=== PATIENT | female | born 1970 | race Two or more races ===

== ENCOUNTER 2024-12-26 16:31 | Emergency (ER) | payer MEDICAID, SELFPAY ==
[2024-12-26 16:32] VITALS: BMI 34.6
[2024-12-26 17:03] VITALS: BP 121/80; PULSE 70; RESP 18; TEMP 37.1; O2SAT 99
--- NOTE | 2024-12-26 17:30 | XR_ITS ---
Examination: CT abdomen and pelvis without contrast. Coronal 3-D reconstructions. Sagittal 2-D reconstructions. Date and time of exam:December 26, 2024 1813 hours INDICATIONS: Back pain and flank pain and burning sensation with urination beginning one week ago CTDI: vol (mGy): 12.1 DLP: (mGycm): 684 Technique: Axial images of the abdomen have been obtained, 3 mm slice thickness Intravenous contrast material has not been administered. Low dose protocols were performed. One or more of the following dose reduction techniques were used; automated exposure control, adjustment of the mA and/or KV according to patient size, use of iterative reconstruction technique. Findings: No focal liver or splenic lesions Cholelithiasis No pancreatic or adrenal mass No renal or ureteral calculi, no hydronephrosis Aorta normal size 10 mm fat-containing umbilical hernia No pericecal inflammatory change No bowel obstruction No diverticulitis Contracted urinary bladder Absent uterus No pelvic mass Advanced degenerative disc disease L4-L5 L5-S1 7 mm central left paracentral disc displacing right and left S1 nerve roots L4-L5 5 mm central lumbar disc bulge IMPRESSION: No renal or ureteral calculi, no hydronephrosis No CT findings of appendicitis bowel obstruction or diverticulitis Advanced degenerative disc disease L4-L5 L5-S1 partially extruded 7 mm central left paracentral disc displacing right and left S1 nerve roots L4-L5 5 mm central lumbar disc bulge
--- NOTE | 2024-12-26 17:30 | PD.EDRME ---
Rapid Medical Screening Exam RME Arrival date/time: 12/26/24 16:31 54-year-old female presents emergency department for complaint of back pain and flank pain Chief Complaint: Urogenital-Female Time Seen by Provider: 12/26/24 17:00 Vital signs: Vital Signs Temperature 98.7 F 12/26/24 17:03 Pulse Rate 70 12/26/24 17:03 Respiratory Rate 18 12/26/24 17:03 Blood Pressure 121/80 12/26/24 17:03 Pulse Oximetry (%) 99 12/26/24 17:03 Oxygen Delivery Method Room Air 12/26/24 17:03
[2024-12-26 17:57] LABS: Basophils % (Auto) 1 % (0-2.5); Eosinophils # (Auto) 0.1 Thou/mm3 (0.0-0.5); Eosinophils % (Auto) 1 % (0-10); Hematocrit 36.5 % (36.0-46.0); Hemoglobin 12.9 g/dL (12.0-16.0); Immature Granulocytes % (Auto) 0 % (0-0); Immature Granulocytes Auto 0.03 Thou/mm3 (0.00-0.00); Lymphocytes # (Auto) 2.1 Thou/mm3 (1.0-4.8); Lymphocytes % (Auto) 26 % (10-50); Mean Corpuscular HGB Conc 35.3 g/dl (31.0-37.0); Mean Corpuscular Hemoglobin 29.8 pg (25.0-35.0); Mean Corpuscular Volume 84 fL (80-100); Monocytes # (Auto) 0.8 Thou/mm3 (0.0-0.8); Monocytes % (Auto) 9 % (0-12); Neutrophils % (Auto) 62 % (37-80); Nucleated Red Blood Cell % 0 /100 WBC (0); Platelet Count 275 Thou/mm3 (140-440); RDW Standard Deviation 39.7 fL (36.4-46.3); Red Blood Count 4.33 Miln/mm3 (4.00-5.20)
[2024-12-26 18:18] LABS: Alanine Aminotransferase 29 U/L (10-49); Albumin, Serum 4.8 gm/dL (3.5-5.0); Albumin/Globulin Ratio 1.7 (1.2-2.2); Alkaline Phosphatase 89 U/L (46-116); Anion Gap 9 (7-16); Aspartate Amino Transferase 29 U/L (0-34); BUN/Creatinine Ratio 14 Ratio (12-20); Bilirubin,Total 0.5 mg/dL (0.3-1.2); Blood Urea Nitrogen 13 mg/dL (9-23); Calcium 9.7 mg/dL (8.3-10.6); Calcium (Corrected) 9.7 mg/dL (8.5-10.1); Carbon Dioxide 25.3 mMol/L (20.0-31.0); Chloride 105 mMol/L (98-107); Creatinine (Component) 0.9 mg/dL (0.6-1.3); Estimated Creatinine Clearance 81.4 mL/min (>60); Globulin 2.9 gm/dL (2.3-3.5); Glucose 96 mg/dL (74-106); Lipase 35 U/L (12-53); Osmolality,Calculated 277 (275-295); Potassium 3.7 mMol/L (3.4-5.1); Sodium 139 mMol/L (136-145); Total Protein 7.7 gm/dL (5.7-8.2); eGFR > 60 See Note
--- NOTE | 2024-12-26 18:34 | EDNOTE_ITS ---
ED Abdominal Pain RME/HPI General Chief Complaint: Urogenital-Female Stated complaint: LEFT FLANK PAIN AND BURNING WITH URINATION Time seen by provider: 12/26/24 17:00 Arrival date/time: This is a case of 54 year old female who came in with left flank pain radiating to left side of the abdomen no nausea no vomiting denies numbness denies weakness nor tingling sensation denies incontinence to urine or stool Source: patient Limitations: no limitations RME / HPI RME / HPI narrative: 12/26/24 16:31 54-year-old female presents emergency department for complaint of back pain and flank pain Related Data Home Medications ?Medication ?Instructions ?Recorded ?Confirmed chlordiazepoxide HCl 10 mg capsule 10 mg PO HS PRN Anx iety 11/22/20 11/26/20 omeprazole 10 mg capsule,delayed 10 mg PO QDAY 1 11/26/20 release Previous Rx's ?Medication ?Instructions ?Recorded cyclobenzaprine 10 mg tablet 10 mg PO TID PRN muscle s pasm #20 12/26/24 tabs ibuprofen 800 mg tablet 800 mg PO Q8H PRN pain #20 t abs 12/26/24 nitrofurantoin 100 mg PO Q12H 10 days #20 c aps 12/26/24 monohydrate/macrocrystals 100 mg capsule (Macrobid) Allergies Allergy/AdvReac Type Severity Reaction Status Date / Time No Known Allergies Allergy Verified 12/26/24 16:32 Review of Systems Review of Systems Systems Reviewed: All systems reviewed, normal except as documented Constitutional Constitutional: Reports system reviewed and no additional complaints, except as documented, Reports as per HPI, Denies chills and Denies fever(s) Cardiovascular Cardiovascular: Reports system reviewed and no additional complaints, except as documented, Reports as per HPI, Denies chest pain and Denies dyspnea Respiratory Respiratory: Reports system reviewed and no additional complaints, except as documented, Reports as per HPI, Denies chest congestion, Denies cough and Denies dyspnea Gastrointestinal Gastrointestinal: Reports system reviewed and no additional complaints, except as documented, Reports abdominal pain, Reports nausea and Denies vomiting Genitourinary Genitourinary: Reports system reviewed and no additional complaints, except as documented, Reports as per HPI, Denies abnormal vaginal bleeding, Reports dysuria and Denies hematuria Musculoskeletal Musculoskeletal: Reports system reviewed and no additional complaints, except as documented and Reports as per HPI Neurologic Neurologic: Reports system reviewed and no additional complaints, except as documented and Reports as per HPI ED Exam General Limitations: Present no limitations General appearance: Present alert and in no apparent distress; Absent appears intoxicated or anxious Head Head exam: Present atraumatic, normocephalic and normal inspection Eye Eye exam: Present normal appearance, PERRL and EOMI ENT ENT exam: Present normal exam, normal oropharynx and mucous membranes moist Neck Neck exam: Present normal inspection, full ROM and trachea midline; Absent te nderness, meningismus or lymphadenopathy Expanded Neck Exam Neck exam focused ED: Absent midline tenderness, paraspinal tenderness, tenderness (other), tracheal deviation, anterior neck swelling or thyroid enlargement Chest Chest inspection: Present normal inspection and symmetric chest wall rise Respiratory Respiratory exam: Present normal lung sounds bilaterally Cardiovascular Cardiovascular exam: Present regular rate, normal rhythm and normal heart sounds Abdominal Exam Abdominal exam: Present soft, tenderness, normal bowel sounds and other (+ CVA tenderness left); Absent distention, guarding, rebound, rigidity, diminished bowel sounds, hyperactive bowel sounds, hypoactive bowel sounds, organomegaly, obturator sign, Callaway's sign, Rovsing's sign, tenderness at McBurney's Point or ascites Abdominal tenderness: Present LLQ Extremities Exam Extremities exam: Present normal inspection and full ROM Back Exam Back exam: Present normal inspection, full ROM and other (no tendernedd on the lumbar and sacral area no paraspinal tenderness motor 5/5 all extremities reflex +2 sensory +2 all extremities capillary refill less than 2 seconds no crepitation); Absent tenderness, CVA tenderness (R), CVA tenderness (L), muscle spasm, paraspinal tenderness, vertebral tenderness, straight leg raise (R) or straight leg raise (L) Neurological Exam Neurological exam: Present alert, oriented X3, CN II-XII intact, normal gait, motor sensory deficit and reflexes normal Psychiatric Psychiatric exam: Present normal affect and normal mood Skin Skin exam: Present warm, dry, intact and normal color Course Quality Measures none Orders Category Date Time Status CT abdomen pelvis wo con Stat Exams 12/26/24 17:30 Completed CBC Stat Lab 12/26/24 17:35 Completed Comprehensive Metabolic Panel Stat Lab 12/26/24 17:35 Completed Lipase Stat Lab 12/26/24 17:35 Completed UA, C/S IF [Urinalysis, C/S if Indicated] Stat Lab 12/26/24 18:43 Completed Dexamethasone Inj [Decadron Inj] Med 12/26/24 19:16 Discontinued 10 mg IM X1 ONE Ketorolac Inj [Toradol Inj] Med 12/26/24 19:16 Discontinued 60 mg IM X1 ONE Vital Signs Vital signs: Vital Signs Temperature 98.7 F 12/26/24 17:03 Pulse Rate 70 12/26/24 17:03 Respiratory Rate 18 12/26/24 17:03 Blood Pressure 121/80 12/26/24 17:03 Pulse Oximetry (%) 99 12/26/24 17:03 Oxygen Delivery Method Room Air 12/26/24 17:03 Oxygen saturation 98% room air WNL Abdominal Pain MDM MDM Narrative MDM Narrative:: This is a case of 54 year old female who came in with left flank pain radiating to left side of the abdomen no nausea no vomiting denies numbness denies weakness nor tingling sensation denies incontinence to urine Physicial exam showed normal vital signs patient is not tacycardic not tacypneic blood pressure stable afebrile not hypoxic physical examination patient is awake alert oriented not in distress nontoxic looking abdominal exam is benign nonsurgical no guarding no rebound no rigidity mild tenderness in the left lower quadrant negative psoas negative obturator negative Rovsing's negative McBurney's negative Callaway sign no CVA tenderness no bladder tenderness back exam noted no tenderness on the lumbar and sacral area no crepitation no redness no paraspinal tenderness no para vertebral tenderness no CVA tenderness steady gait motor 5/5 in all extremities reflexes +2 sensory +2 capillary refill less than 2 seconds on my exam there is no s/sxof cauda equina no signs or symptoms of sepsis no signs and symptoms of dehydration test showed blood test showed no leukocytosis no anemia kidney and liver function is normal no electrolyte imbalance urinalysis showing positive WBC suggestive of urinary tract infection CT scan showed DDD l4-l5 with L5 -S1 partially extruded cental left paracentral displaing the right left s1 nerve roots and lumbar bulging disc I discuss with the patinet to Dr May Can she agreed since patient has no neurological sx and normal exam no s/sx of cauda equinia patinet is not indicated to be admitted or trasfer i discuss the discharge instruction to the patient vis austrian interpreted the important to see neurosurgeon was discuss which patinet will ffup with pcp she was also given referral to dr carlos woodruff to see tomorrow for possible mri she was also advsied if there is numbness weakness tingling sensation incontince to urine or stool she need to go to er or call 911 she was given toradol for pain and dexamethsone and prescribed with motrin and muscle relaxant she was also given macrobid for UTI patient was disharged with comforatble conditionwith stable condition and pain fee. Walking stable Patient verbalized no further complain with the proposed management plan including the need to follow up with his/her primary care physician and and any specialist fif applicable. Discussed patient for any urgent condition or worsening sx He she needed to go to Emergency room of call 911 Patient is acknowledge the responsibility to follow up as instructed and to monitor his/her symptoms For any persistnce of the symtoms for more than 3-5 days retrun precaution advised Discussed the result of thetest and was given printed dsicahrge instruction Patient data External records reviewed:: [facility] previous records Clinical information provided by:: patient Social determinants that could affect healthcare access:: none Patient has the following chronic illnesses:: none How is presenting disease/condition affected by chronic disease/condition?: no chronic disease Evaluation data The following diagnostics were reviewed and interpreted by me:: lab results and radiology exam(s) Lab and/or radiology exams considered but not ordered:: reviwed Interpretation Summary: normal Medications / Prescriptions Medications or Prescriptions considered but not ordered:: given Medication administrations:: Medication Administration History Discontinued Medications Dexamethasone Sodium Phosphate (Dexamethasone Sod Phos Inj 10 Mg/Ml Vial) 10 mg IM X1 ONE Stop: 12/26/24 19:17 Ketorolac Tromethamine (Ketorolac Inj 60 Mg/2 Ml Vial) 60 mg IM X1 ONE Stop: 12/26/24 19:17 given Consultations Consultation(s) initiated? (list below): No Diagnosis Differential diagnosis abdominal pain: abdominal pain, calculus of kidney and diverticulitis Most likely diagnosis given after review of the tests above:: ddd lumbar Admission Indicated Admission indicated?: indicated Explain why admission is indicated or not indicated:: not indicated Admission Request Was there a request for admission?: No Admission Attestation Admission request attestation: not indicated Disposition Plan Disposition Plan: Discharge Discharge Attestation Discharge Attestation: The patient and all family members were given an opportunity to ask questions and understood the discharge instructions. Discharge instructions specifically effects, indications for sooner follow up or return to the emergency department, and the expected course of current diagnosis. Patient condition: Stable Discharge Plan Plan Patient Disposition: HOME (Self Care) Patient condition on transfer: Stable Prescriptions/Referrals Prescriptions/Med Rec: New ibuprofen 800 mg tablet 800 mg PO Q8H PRN (Reason: pain) Qty: 20 0RF cyclobenzaprine 10 mg tablet 10 mg PO TID PRN (Reason: muscle spasm) Qty: 20 0RF nitrofurantoin monohyd/m-cryst [Macrobid] 100 mg capsule 100 mg PO Q12H 10 Days Qty: 20 0RF Rx Instructions: must administer with a meal/food No Action omeprazole 10 mg Capsule,Delayed Release(Dr/Ec) 10 mg PO QDAY chlordiazepoxide HCl 10 mg Capsule 10 mg PO HS PRN (Reason: Anxiety) Referrals: Juliocesar Mitchell PA-C [Primary Care Provider] - In 1 week Charles Mcelroy MD [Physician] - 12/27/24 (for further evaluation and treatment of lumbar bulging disc and 7mm cental paracentral disc displacing for possible mri lumbar) Problem List Clinical Impression: Bulging lumbar disc, Abdominal pain, Urinary tract infection Patient/Caregiver Discharge Instructions Other Activity Instructions:: no lifting no pulling no pushing more than 5 pounds Education Materials: Abdominal Pain, Back Safety: Lifting, Understanding Urinary Tract ..., Back Safety: Basics of Good Posture, Common Spine and Disk Problems, ED Degenerative Disk Disease Additional Instructions: follow up with your pcp in 2 days for reevalaution and to be referred to neurosurgeon for further evaluation and treatment of lumbar bulging disc Print Language: [place] Stand Alone Forms: Juany Award Info., Patient Portal Info Letter ARABELLA/JESSEE Supervising Physician ARABELLA/JESSEE Supervising Physician: dr vazquez
[2024-12-26 18:47] LABS: Collection Type, Urine Clean Catch
[2024-12-26 18:59] LABS: Bilirubin,Urine Negative (Negative); Blood,Urine Negative (Negative); Clarity,Urine Clear (Clear/Hazy); Color,Urine Lt-Yellow (Lt Yel-Yel); Culture Indicated,Urine Not Indicated; Glucose, Urine Negative (Negative); Ketones,Urine Negative (Negative); Leukocyte Esterase,Urine Positive (Negative); Nitrite,Urine Negative (Negative); PH,Urine 6.5 (5.0-7.0); Protein,Urine Negative (Neg - Trace); RBC,Urine 5 /hpf (0-3); Specific Gravity,Urine 1.021 (1.001-1.035); Squamous Epithelial Cell,Urine 1 /hpf (0-5); Urobilinogen,Urine Negative mg/dL (0.0-1.0); WBC,Urine 5 /hpf (0-5)
[2024-12-26] MEDS: DEXAMETHASONE SOD PHOS INJ 10 MG/ML VIAL IM (19:52)
[2024-12-26] MEDS: KETOROLAC INJ 60 MG/2 ML VIAL IM (19:52)
== END 2024-12-26 20:05 | disposition home or self-care (01) ==
PROVIDERS: Nurse Practitioner Primary Care; Emergency Provider Emergency Medicine; PCP Family Medicine
DX: M51.369 Other intervertebral disc degeneration, lumbar region without mention of lumbar back pain or lower extremity pain (principal); M51.26 Other intervertebral disc displacement, lumbar region; N39.0 Urinary tract infection, site not specified
CPT/HCPCS: 36415; 74176; 80053; 81001; 83690; 85025; 96372; 99284; J1100; J1885